=== PATIENT | female | born 1955 | race Caucasian/White ===

== ENCOUNTER 2017-04-04 15:48 | Emergency (ER) | payer OTHER ==
[~2017-04-04] VITALS: Ht 152.4 cm; Wt 97.2 kg
[~2017-04-04 15:48] MED LIST: ASPI81TA3 OR; CARV12.5 OR; CARVEDILOL PO; LIPI20TA OR; LISINOPRIL; LISIPOW PO
[2017-04-04 15:50] VITALS: BP 155/82
[2017-04-04] MEDS ORDERED: VITA100L PO (16:06)
== END 2017-04-04 16:33 | disposition home or self-care (01) ==
LOC: M ED 16:16
DX: T85.49XA Other mechanical complication of breast prosthesis and implant, initial encounter (principal); X58.XXXA Exposure to other specified factors, initial encounter; Y92.9 Unspecified place or not applicable; Y93.9 Activity, unspecified; Y99.8 Other external cause status; Z85.3 Personal history of malignant neoplasm of breast; Z90.11 Acquired absence of right breast and nipple; Z79.82 Long term (current) use of aspirin; Z79.899 Other long term (current) drug therapy

== ENCOUNTER → 2017-12-04 | Outpatient (CLI) | payer BC | LOC: M WUC 11:56 | DX: M25.562 Pain in left knee (principal) | CPT/HCPCS: 73564 ==

== ENCOUNTER → 2021-08-01 | Outpatient (REF) ==
[~2021-08-01] MED LIST changes: +VITA100L PO
== END ==
LOC: M LAB 11:57
PROVIDERS: ATTEND Nurse Practitioner Adult Health
DX: Z02.89 Encounter for other administrative examinations (principal)

== ENCOUNTER → 2022-09-18 | Outpatient (REF) ==
[2022-09-18 13:31] LABS: RSV AMPLIFICATION NEGATIVE (NEGATIVE)
== END ==
LOC: M LABSMTC 11:56
PROVIDERS: ATTEND Family Medicine
DX: Z20.822 Contact with and (suspected) exposure to COVID-19 (principal)

== ENCOUNTER → 2023-12-25 | Outpatient (REF) | LOC: M EMP 11:39 | PROVIDERS: ATTEND Family Medicine | DX: Z11.52 Encounter for screening for COVID-19 (principal) ==

== ENCOUNTER 2024-12-07 22:13 | Emergency (ER) | payer OTHER, BC, MEDICARE ==
[~2024-12-07] VITALS: Ht 152.4 cm; Wt 86.2 kg
[2024-12-08 01:33] VITALS: BP 156/82; TEMP 97.4; O2SAT 99
== END 2024-12-08 01:34 | disposition home or self-care (01) ==
LOC: M ED 22:13
DX: S09.90XA Unspecified injury of head, initial encounter (principal); W01.10XA Fall on same level from slipping, tripping and stumbling with subsequent striking against unspecified object, initial encounter; I10 Essential (primary) hypertension; Y92.89 Other specified places as the place of occurrence of the external cause; Y93.E5 Activity, floor mopping and cleaning; Y99.0 Civilian activity done for income or pay; Z79.82 Long term (current) use of aspirin; Z79.02 Long term (current) use of antithrombotics/antiplatelets; Z79.899 Other long term (current) drug therapy